=== PATIENT | male | born 1950 | race Caucasian/White ===

== ENCOUNTER → 2019-09-29 | Outpatient (CLI) | payer MEDICARE, OTHER ==
[~2019-09-29] VITALS: Ht 182.9 cm; Wt 70.5 kg
[~2019-09-29] MED LIST: ALLO100T30 PO; ALPH300C PO; APIX5TAB PO; BACITRACIN 50,000 UNIT ONE; BUPIVACAINE 0.25% ONE; BUPIVACAINE/PF 0.5% ONE; CALC600T4 PO; CETI10TA24 PO; CHOL2000 PO; CINN500C2 PO; EPINEPHRINE 1 MG/ML, 1ML ONE; FENO67CA PO; LEVO75TA PO; LUTE10TA2 PO; MAGN400T36 PO; MULT1TAB60 PO; MYCO360T PO; OCTR50AM INJ; PITA2TAB2 PO; PRED5TAB PO; TACR0.5C4 PO; TACR1CAP4 PO; UBID100C24 PO; VALS160T3 PO; VANCOMYCIN 1,000 MG ONE
== END | disposition home or self-care (01) ==
LOC: OUT 08:00 → OR 13:00 → EDSTATUS 16:00
PROVIDERS: ATTEND Neurological Surgery
DX: M48.061 Spinal stenosis, lumbar region without neurogenic claudication (principal); Z53.8 Procedure and treatment not carried out for other reasons; M54.16 Radiculopathy, lumbar region
CPT/HCPCS: J0171; J3370; J3490